=== PATIENT | female | born 1960 | race Caucasian/White ===

== ENCOUNTER → 2016-10-12 | Outpatient (CLI) | payer OTHER ==
--- NOTE | 2016-10-12 16:36 | DIAGNOSTIC IMAGING REPORT ---
RIGHT HAND 3 VIEWS CLINICAL HISTORY: Right hand pain. Elevated ESR. FINDINGS: 3 views of the right hand are obtained. No prior studies are available for comparison at the time of dictation. The skeletal structures are osteopenic. No fracture is seen. The joint spaces of the hand are well-maintained. No erosive disease is identified. The overlying soft tissues are within normal limits. IMPRESSION: No acute bony abnormality is identified in the right hand. Electronically signed by: Ho Esteves M.D. 10/12/2016 4:34 PM Dictated Date/Time: 10/12/2016 4:33 PM
--- NOTE | 2016-10-12 16:37 | DIAGNOSTIC IMAGING REPORT ---
RIGHT KNEE 3 VIEWS CLINICAL HISTORY: Right knee pain and swelling. FINDINGS: AP, lateral, and sunrise views of the right knee are obtained. No prior studies are available for comparison at the time of dictation. The skeletal structures are osteopenic. No fracture is seen. There is mild to moderate tricompartmental degenerative joint space narrowing, greatest at the patellofemoral articulation. There are tiny patellar enthesophytes and minimal degenerative beaking of the tibial spine. Soft tissue edema is present around the knee. A joint effusion is identified. Advanced atherosclerotic calcification is noted in the popliteal artery. IMPRESSION: 1. Joint effusion and soft tissue edema. No acute bony abnormality is seen in the right knee. 2. Osteopenia and arthritic change as above. Electronically signed by: Ho Esteves M.D. 10/12/2016 4:36 PM Dictated Date/Time: 10/12/2016 4:34 PM
[2016-10-14 23:48] LABS: ALBUMIN 4.2 G/DL (3.8-4.8); CYCLIC CITRULLINATED PEPT IGG >250 UNITS (<20); TOTAL PROTEIN 8.3 G/DL (6.2-8.3)
== END | disposition home or self-care (01) ==
LOC: C.RAD1850 16:04
PROVIDERS: ATTEND Internal Medicine Rheumatology
DX: E55.9 Vitamin D deficiency, unspecified (principal); E61.8 Deficiency of other specified nutrient elements; M05.741 Rheumatoid arthritis with rheumatoid factor of right hand without organ or systems involvement; M05.742 Rheumatoid arthritis with rheumatoid factor of left hand without organ or systems involvement; M25.561 Pain in right knee; M25.461 Effusion, right knee; M80.00XA Age-related osteoporosis with current pathological fracture, unspecified site, initial encounter for fracture; R70.0 Elevated erythrocyte sedimentation rate; S42.309A Unspecified fracture of shaft of humerus, unspecified arm, initial encounter for closed fracture; X58.XXXA Exposure to other specified factors, initial encounter; M79.9 Soft tissue disorder, unspecified; M85.861 Other specified disorders of bone density and structure, right lower leg; M17.11 Unilateral primary osteoarthritis, right knee

== ENCOUNTER → 2016-10-28 | Outpatient (CLI) | payer OTHER | END | disposition home or self-care (01) | LOC: C.MAMM 11:27 | PROVIDERS: ATTEND Internal Medicine Rheumatology | DX: M05.741 Rheumatoid arthritis with rheumatoid factor of right hand without organ or systems involvement (principal); M05.742 Rheumatoid arthritis with rheumatoid factor of left hand without organ or systems involvement; R70.0 Elevated erythrocyte sedimentation rate; M25.461 Effusion, right knee; M25.561 Pain in right knee; E55.9 Vitamin D deficiency, unspecified; M85.851 Other specified disorders of bone density and structure, right thigh; S42.309A Unspecified fracture of shaft of humerus, unspecified arm, initial encounter for closed fracture; X58.XXXA Exposure to other specified factors, initial encounter ==

== ENCOUNTER → 2016-11-11 | Outpatient (CLI) | payer OTHER ==
[2016-11-11 13:03] LABS: BASO % 0.4 %; BASO ABS # 0.03 K/uL (0-0.2); COMPLETE YES; EOS % 2.1 %; HEMATOCRIT 45.8 % (37-47); IG% 0.3 %; LYMPH % 34.8 %; LYMPH ABS # 2.53 K/uL (1.2-3.4); MEAN CELL VOLUME 97.2 fL (80-100); MEAN CORPUSCULAR HEMOGLOBIN 33.1 pg (25-34); MEAN CORPUSCULAR HGB CONC 34.1 g/dl (32-36); MEAN PLATELET VOLUME 9.3 fL (7.4-10.4); MONO % 6.7 %; NEUT % 55.7 %; PLATELET COUNT 228 K/uL (130-400); RED BLOOD COUNT 4.71 M/uL (4.2-5.4); WHITE BLOOD COUNT 7.28 K/uL (4.8-10.8)
[2016-11-11 13:14] LABS: CREATININE 0.63 mg/dl (0.60-1.20)
[2016-11-11 13:15] LABS: ALT/SGPT 43 U/L (12-78)
[2016-11-11 13:17] LABS: ALKALINE PHOSPHATASE 99 U/L (45-117); AST/SGOT 50 U/L (15-37)
== END | disposition home or self-care (01) ==
LOC: C.LAB1850 12:06
PROVIDERS: ATTEND Internal Medicine Rheumatology
DX: M05.741 Rheumatoid arthritis with rheumatoid factor of right hand without organ or systems involvement (principal); M05.742 Rheumatoid arthritis with rheumatoid factor of left hand without organ or systems involvement; M25.461 Effusion, right knee; M25.561 Pain in right knee

== ENCOUNTER → 2017-04-06 | Outpatient (CLI) | payer OTHER ==
[2017-04-06 17:45] LABS: BASO % 0.3 %; BASO ABS # 0.02 K/uL (0-0.2); COMPLETE YES; EOS % 3.4 %; HEMATOCRIT 44.6 % (37-47); IG% 0.3 %; LYMPH % 32.5 %; MEAN CELL VOLUME 100.5 fL (80-100); MEAN CORPUSCULAR HEMOGLOBIN 33.3 pg (25-34); MEAN CORPUSCULAR HGB CONC 33.2 g/dl (32-36); MEAN PLATELET VOLUME 9.6 fL (7.4-10.4); MONO % 7.7 %; NEUT % 55.8 %; PLATELET COUNT 203 K/uL (130-400); RED BLOOD COUNT 4.44 M/uL (4.2-5.4); WHITE BLOOD COUNT 6.47 K/uL (4.8-10.8)
[2017-04-06 18:00] LABS: ALT/SGPT 45 U/L (12-78); CREATININE 0.79 mg/dl (0.60-1.20)
[2017-04-06 18:03] LABS: ALKALINE PHOSPHATASE 125 U/L (45-117); AST/SGOT 44 U/L (15-37)
== END | disposition home or self-care (01) ==
LOC: C.LABPBG 13:16
PROVIDERS: ATTEND Internal Medicine Rheumatology
DX: M05.741 Rheumatoid arthritis with rheumatoid factor of right hand without organ or systems involvement (principal); M05.742 Rheumatoid arthritis with rheumatoid factor of left hand without organ or systems involvement; Z79.899 Other long term (current) drug therapy

== ENCOUNTER → 2017-08-02 | Day surgery (SDC) | payer OTHER ==
[2017-07-25 08:57] VITALS: Ht 170.2 cm; Wt 77.3 kg
[~2017-08-02] VITALS: Ht 170.2 cm; Wt 77.3 kg
[~2017-08-02] MED LIST: FOLI1TAB7 PO; LEVO150T PO; LIDOCAINE HCL 2% 2 ML VIAL (20MG/ML) ONE; METH2.5T PO; OMEP20TA14 PO; PROPOFOL IV EMULSION 10 MG/ML 20 ML VIAL IV ONE; SODIUM CHLORIDE 0.9% 500ML 500 ML IV ONE
--- NOTE | 2017-08-02 09:44 | Endo History and Physical ---
History & Physical Date of Service: Aug 02, 2017. Chief Complaint: Probable cecal polyp Referring Physician: Dr. Naren Sigala History of Present Illness 57 yo CF who presents for colonoscopy secondary cecal polyp Past Surgical History Hx Cardiac Surgery: No Hx Internal Defibrillator: No Hx Pacemaker: No Hx Abdominal Surgery: Yes (D&C) Hx of Implantable Prosthesis: No Hx Post-Op Nausea and Vomiting: No Hx Cancer Surgery: No Hx Thoracic Surgery: No Hx Orthopedic: No Hx Urinary Tract Surgery: No Family History Polyp Social History Smoking Status: Current Every Day Smoker Hx Substance Use: No Hx Alcohol Use: No Allergies Coded Allergies: No Known Allergies (Verified , 08/02/17) Current Medications Reported Home Medications Medications Dose Route/Sig Max Daily Dose Days Date Category Prilosec Otc (Omeprazole Magnesium) 20 Mg Tab 20 Mg PO HS 07/25/17 Reported Methotrexate (Methotrexate Sodium) 2.5 Mg Tab 5 Tabs PO WK 07/25/17 Reported Synthroid (Levothyroxine Sodium) 150 Mcg Tab 150 Mcg PO QAM 07/25/17 Reported Folvite (Folic Acid) 1 Mg Tab 1 Mg PO QAM 07/25/17 Reported Vital Signs Weight (Kilograms): 77.27 Height (Feet): 5 Height (Inches): 7 Date Time Temp Pulse Resp B/P (MAP) Pulse Ox O2 Delivery O2 Flow Rate FiO2 08/02/17 09:14 36.6 69 16 98/55 (69) 93 Room Air Physical Exam General Appearance: WD/WN, no apparent distress Respiratory/Chest: Auscultation: breath sounds normal Cardiovascular: Heart Auscultation: RRR Abdomen: Bowel Sounds: normal Inspection & Palpation: soft, non-distended, no tenderness, guarding & rebound Assessment and Plan Assessment: 57 yo CF who presents for colonoscopy secondary cecal polyp Plan: Proceed with colonoscopy.
--- NOTE | 2017-08-02 10:12 | Discharge Instructions ---
Endoscopy Patient Instructions Date / Procedure(s) Performed Aug 02, 2017. Colonoscopy Allergy Information Coded Allergies: No Known Allergies (Verified , 08/02/17) Discharge Date / Findings Aug 02, 2017. Colon polyps Diverticulosis Internal hemorrhoids Medication Instructions Stopped Medication(s): Patient was told to stop her folic acid. Patient hasn't taken any meds yet today. OK to resume all medications today as prescribed Reported Home Medications Medications Dose Route/Sig Max Daily Dose Days Date Category Prilosec Otc (Omeprazole Magnesium) 20 Mg Tab 20 Mg PO HS 07/25/17 Reported Methotrexate (Methotrexate Sodium) 2.5 Mg Tab 5 Tabs PO WK 07/25/17 Reported Synthroid (Levothyroxine Sodium) 150 Mcg Tab 150 Mcg PO QAM 07/25/17 Reported Folvite (Folic Acid) 1 Mg Tab 1 Mg PO QAM 07/25/17 Reported Provider Instructions Activity Restrictions - No exercising or heavy lifting for 24 hours. - Do not drink alcohol the day of the procedure. - Do not drive a car or operate machinery until the day after the procedure. - Do not make any important decisions or sign important papers in 24 hours after the procedure. Following Day: - Return to full activity which may include returning to work/school. Diet Start your diet with liquids and light foods (jello, soup, juice, toast). Then eat your usual diet if not nauseated. Treatment For Common After Affects For mild abdominal pain, bloating, or excessive gas: - Rest - Eat lightly - Lie on right side Follow-Up Information Follow-up with Dr. Naren Sigala as scheduled Anesthesia Information What You Should Know You have had a procedure that required some medicine to reduce anxiety and discomfort. This treatment is called moderate sedation. After receiving the treatment, you may be sleepy, but you will be able to breathe on your own. The effects of the treatment may last for several hours. Follow these instructions along with Activity/Diet recommendations noted above: * Do NOT do anything where dizziness or clumsiness would be dangerous. * Rest quietly at home today, then you can be up and about tomorrow. * Have a responsible person stay with you the rest of today. * You may have had an I.V. today. If so, you may take the dressing off later today. Recommendations Call your doctor if: * Trouble breathing * Continuous vomiting for more than 24 hours * Temperature above 101 degrees * Severe abdominal pain or bloating * Pain not relieved by pain medicine ordered * There is increased drainage or redness from any incision * A large amount of rectal bleeding greater than 2-3 tablespoons. (If you had a polyp/s removed or have hemorrhoids, a small amount of blood - from the rectum is to be expected.) * You have any unanswered questions or concerns. IN THE EVENT OF A SERIOUS EMERGENCY, GO TO THE NEAREST EMERGENCY ROOM Your discharge instructions were prepared by provider Grayson Langley. Patient Instructions Signature Page Anjali Bernal Patient (or Guardian) Signature/Date: I have read and understand the instructions given to me by my caregivers. Caregiver/RN/Doctor Signature/Date: The above-named patient and/or guardian has received patient instructions on this date. + Original Patient Signature Page (only) stays with chart. Please make copy for patient.
--- NOTE | 2017-08-02 10:23 | GI REPORT ---
Procedure Date: 08/02/2017 9:32 AM Procedure: Colonoscopy Indications: Therapeutic procedure for known colon polyp Medicines: Monitored Anesthesia Care Complications: No immediate complications. Estimated Blood Loss: Estimated blood loss: none. Procedure: Pre-Anesthesia Assessment: - Prior to the procedure, a History and Physical was performed, and patient medications and allergies were reviewed. The patient's tolerance of previous anesthesia was also reviewed. The risks and benefits of the procedure and the sedation options and risks were discussed with the patient. All questions were answered, and informed consent was obtained. Prior Anticoagulants: The patient has taken no previous anticoagulant or antiplatelet agents. ASA Grade Assessment: III - A patient with severe systemic disease. After reviewing the risks and benefits, the patient was deemed in satisfactory condition to undergo the procedure. After I obtained informed consent, the scope was passed under direct vision. Throughout the procedure, the patient's blood pressure, pulse, and oxygen saturations were monitored continuously. The scope was introduced through the anus and advanced to the terminal ileum. The colonoscopy was performed without difficulty. The patient tolerated the procedure well. The quality of the bowel preparation was good. The terminal ileum, ileocecal valve, appendiceal orifice, and rectum were photographed. Findings: The perianal and digital rectal examinations were normal. Five sessile polyps were found in the sigmoid colon, in the ascending colon and in the cecum. The polyps were 4 to 10 mm in size. These polyps were removed with a hot snare. Resection and retrieval were complete. Multiple small-mouthed diverticula were found in the sigmoid colon. Non-bleeding internal hemorrhoids were found during retroflexion. The hemorrhoids were small. Impression: - Five 4 to 10 mm polyps in the sigmoid colon, in the ascending colon and in the cecum, removed with a hot snare. Resected and retrieved. - Diverticulosis in the sigmoid colon. - Non-bleeding internal hemorrhoids. Recommendation: - Resume previous diet. - Continue present medications. - Repeat colonoscopy for surveillance based on pathology results. - Return to primary care physician as previously scheduled. Grayson Langley DO 08/02/2017 10:18:21 AM This report has been signed electronically. Note Initiated On: 08/02/2017 9:32 AM I attest to the content of the Intraoperative Record and orders documented therein, exceptions below
[2017-08-02 10:58] VITALS: BP 125/80; PULSE 71; O2SAT 94
--- NOTE | 2017-08-02 12:38 | Anesthesiology Progress Note ---
Anesthesia Post Op Note Date & Time Aug 02, 2017 at 12:33 Vital Signs Pain Intensity: 0 Vital Signs Past 12 Hours Date Time Temp Pulse Resp B/P (MAP) Pulse Ox O2 Delivery O2 Flow Rate FiO2 08/02/17 10:58 71 20 125/80 (95) 94 Room Air 08/02/17 10:43 71 20 121/78 (92) 95 Room Air 08/02/17 10:27 75 20 124/73 (90) 96 Room Air 08/02/17 09:14 36.6 69 16 98/55 (69) 93 Room Air Notes Mental Status: alert / awake / arousable, participated in evaluation Pt Amnestic to Procedure: Yes Nausea / Vomiting: adequately controlled Pain: adequately controlled Airway Patency, RR, SpO2: stable & adequate BP & HR: stable & adequate Hydration State: stable & adequate Anesthetic Complications: no major complications apparent The patient is s/p colonoscopy with Dr. Langley. Per the LAW E[employer] OFFICER Vicente, at the end of the procedure the patient vomited some yellow bile. He immediately suctioned her airway. She did not appear to aspirate as she did not drop her oxygen saturation or cough. The patient emerged from anesthesia and did well with no problems. She was saturating 94% on room air in recovery which is her baseline. Her lungs were clear and she had no cough. She stated she felt well with no complaints. In recovery, I notified the patient that she had an episode of emesis during the procedure and that although it did not appear that she aspirated that I cold not be completely certain that she did not aspirate a small amount of gastric secretions. I instructed her to go to the ED if she develops fever, shortness of breath, pain with breathing, wheezing, chest pain, severe cough, lightheaded or dizziness or with any other concerns. She understands and agrees.
== END | disposition home or self-care (01) ==
LOC: C.GI 08:42
PROVIDERS: ATTEND Internal Medicine
DX: D12.2 Benign neoplasm of ascending colon (principal); D12.0 Benign neoplasm of cecum; D12.5 Benign neoplasm of sigmoid colon; K57.30 Diverticulosis of large intestine without perforation or abscess without bleeding; K64.8 Other hemorrhoids; F17.200 Nicotine dependence, unspecified, uncomplicated; Z79.899 Other long term (current) drug therapy

== ENCOUNTER → 2017-08-16 | Outpatient (CLI) | payer OTHER ==
[~2017-08-16] MED LIST changes: -FOLI1TAB7 PO; +FOLI1TAB8 PO; -LIDOCAINE HCL 2% 2 ML VIAL (20MG/ML) ONE; -PROPOFOL IV EMULSION 10 MG/ML 20 ML VIAL IV ONE; -SODIUM CHLORIDE 0.9% 500ML 500 ML IV ONE
[2017-08-16 17:27] LABS: BASO % 0.3 %; BASO ABS # 0.02 K/uL (0-0.2); COMPLETE YES; EOS % 3.1 %; HEMATOCRIT 42.1 % (37-47); IG% 0.3 %; LYMPH % 26.9 %; LYMPH ABS # 1.76 K/uL (1.2-3.4); MEAN CELL VOLUME 101.7 fL (80-100); MEAN CORPUSCULAR HEMOGLOBIN 35.5 pg (25-34); MEAN CORPUSCULAR HGB CONC 34.9 g/dl (32-36); MEAN PLATELET VOLUME 9.8 fL (7.4-10.4); MONO % 7.5 %; NEUT % 61.9 %; PLATELET COUNT 176 K/uL (130-400); RED BLOOD COUNT 4.14 M/uL (4.2-5.4); WHITE BLOOD COUNT 6.54 K/uL (4.8-10.8)
[2017-08-16 17:28] LABS: ALT/SGPT 75 U/L (12-78); AST/SGOT 79 U/L (15-37); CREATININE 0.62 mg/dl (0.60-1.20)
[2017-08-16 17:30] LABS: ALKALINE PHOSPHATASE 130 U/L (45-117)
== END | disposition home or self-care (01) ==
LOC: C.LABPBG 12:50
PROVIDERS: ATTEND Internal Medicine Rheumatology
DX: M05.741 Rheumatoid arthritis with rheumatoid factor of right hand without organ or systems involvement (principal); M25.461 Effusion, right knee; M05.742 Rheumatoid arthritis with rheumatoid factor of left hand without organ or systems involvement

== ENCOUNTER → 2017-09-01 | Outpatient (CLI) | payer OTHER | END | disposition home or self-care (01) | LOC: C.LABPBG 11:04 | PROVIDERS: ATTEND Internal Medicine Rheumatology | DX: E55.9 Vitamin D deficiency, unspecified (principal) ==

== ENCOUNTER → 2017-11-29 | Outpatient (CLI) | payer OTHER | END | disposition home or self-care (01) | LOC: C.MAMM 09:58 | PROVIDERS: ATTEND Internal Medicine Rheumatology | DX: S62.109A Fracture of unspecified carpal bone, unspecified wrist, initial encounter for closed fracture (principal); X58.XXXA Exposure to other specified factors, initial encounter ==

== ENCOUNTER → 2017-12-14 | Outpatient (CLI) | payer OTHER ==
[2017-12-14 17:00] LABS: BASO % 0.6 %; BASO ABS # 0.06 K/uL (0-0.2); EOS % 3.3 %; EOS ABS # 0.33 K/uL (0-0.5); HEMOGLOBIN 15.6 g/dL (12.0-16.0); IG# 0.02 K/uL (0.00-0.02); LYMPH % 19.6 %; LYMPH ABS # 1.97 K/uL (1.2-3.4); MEAN CELL VOLUME 100.9 fL (80-100); MEAN CORPUSCULAR HGB CONC 34.7 g/dl (32-36); MEAN PLATELET VOLUME 9.8 fL (7.4-10.4); MONO % 4.7 %; MONO ABS # 0.47 K/uL (0.11-0.59); NEUT % 71.6 %; NEUT ABS # 7.19 K/uL (1.4-6.5); PLATELET COUNT 198 K/uL (130-400); RED CELL DISTRIBUTION WIDTH CV 13.5 % (11.5-14.5); RED CELL DISTRIBUTION WIDTH SD 49.6 fL (36.4-46.3); WHITE BLOOD COUNT 10.04 K/uL (4.8-10.8)
[2017-12-14 17:16] LABS: ALBUMIN 4.1 gm/dl (3.4-5.0); ALT/SGPT 59 U/L (12-78); AST/SGOT 107 U/L (15-37); CREATININE 0.77 mg/dl (0.60-1.20)
[2017-12-14 17:18] LABS: ALKALINE PHOSPHATASE 127 U/L (45-117); TOTAL PROTEIN 8.6 gm/dl (6.4-8.2)
== END | disposition home or self-care (01) ==
LOC: C.LABPBG 13:34
PROVIDERS: ATTEND Internal Medicine Rheumatology
DX: M05.741 Rheumatoid arthritis with rheumatoid factor of right hand without organ or systems involvement (principal); M05.742 Rheumatoid arthritis with rheumatoid factor of left hand without organ or systems involvement; E55.9 Vitamin D deficiency, unspecified

== ENCOUNTER → 2018-04-03 | Outpatient (CLI) | payer BC ==
[2018-04-03 12:51] LABS: BASO % 0.4 %; BASO ABS # 0.03 K/uL (0-0.2); EOS % 2.2 %; EOS ABS # 0.16 K/uL (0-0.5); HEMATOCRIT 42.2 % (37-47); HEMOGLOBIN 14.2 g/dL (12.0-16.0); IG# 0.03 K/uL (0.00-0.02); LYMPH % 19.2 %; LYMPH ABS # 1.41 K/uL (1.2-3.4); MEAN CELL VOLUME 98.1 fL (80-100); MEAN CORPUSCULAR HGB CONC 33.6 g/dl (32-36); MEAN PLATELET VOLUME 9.9 fL (7.4-10.4); MONO % 8.2 %; NEUT % 69.6 %; NEUT ABS # 5.13 K/uL (1.4-6.5); PLATELET COUNT 165 K/uL (130-400); RED CELL DISTRIBUTION WIDTH CV 14.1 % (11.5-14.5); RED CELL DISTRIBUTION WIDTH SD 50.3 fL (36.4-46.3); WHITE BLOOD COUNT 7.36 K/uL (4.8-10.8)
[2018-04-03 13:42] LABS: ALBUMIN 3.8 gm/dl (3.4-5.0); ALKALINE PHOSPHATASE 139 U/L (45-117); ALT/SGPT 53 U/L (12-78); AST/SGOT 116 U/L (15-37); CREATININE 0.74 mg/dl (0.60-1.20); TOTAL PROTEIN 8.9 gm/dl (6.4-8.2)
== END | disposition home or self-care (01) ==
LOC: C.LABPBG 10:30
PROVIDERS: ATTEND Internal Medicine Rheumatology
DX: M05.741 Rheumatoid arthritis with rheumatoid factor of right hand without organ or systems involvement (principal); M05.742 Rheumatoid arthritis with rheumatoid factor of left hand without organ or systems involvement; R94.5 Abnormal results of liver function studies